=== PATIENT | female | born 1965 | race African-American/Black ===

== ENCOUNTER 2022-10-17 09:22 | Emergency (ER) | payer OTHER ==
[2022-10-17] MEDS ORDERED: Bicillin LA 1.2 MILLION UNITS/2 ML SYRINGE IM SCH (12:00)
== END 2022-10-17 12:07 | disposition home or self-care (01) ==
LOC: CSHERS 09:22
DX: J02.0 Streptococcal pharyngitis (principal)
CPT/HCPCS: 87430; 96372; 99283; J0561